=== PATIENT | female | born 1990 | race Caucasian/White ===

== ENCOUNTER 2017-03-13 16:12 | Emergency (ER) | payer MEDICAID, OTHER, SELFPAY ==
[2017-03-13 16:12] VITALS: BMI 35.2
[2017-03-13 16:18] VITALS: RESP 16; O2SAT 99
[2017-03-13] MEDS ORDERED: Sodium Chloride 0.9% 1,000 ML IV STA ×2 (16:25→18:07)
--- NOTE | 2017-03-13 16:29 | ED PDOC ---
HPI: General Adult Time Seen by Provider: 03/13/17 16:20 Chief Complaint (Nursing): Abdominal Pain Chief Complaint (Provider): fever, body aches, vomiting, diarrhea History Per: Patient Additional Complaint(s): 26 year old female with no past medical history presents to emergency department with 2 day history of fever, body aches, vomiting, diarrhea and abdominal pain. Patient took Tylenol earlier today but this did not help. She has mild generalized abdominal pain as well. Patient denies any recent travel or known sick contacts. No associated cough or chest pain. Patient has mild headache as well. Past Medical History Reviewed: Historical Data, Nursing Documentation, Vital Signs Vital Signs: Last Vital Signs Temp 99 F 03/13/17 19:30 Pulse 90 03/13/17 19:30 Resp 16 03/13/17 19:30 BP 103/58 L 03/13/17 19:30 Pulse Ox 99 03/13/17 19:40 - Medical History PMH: No Chronic Diseases - Surgical History Surgical History: No Surg Hx - Family History Family History: States: No Known Family Hx - Living Arrangements Living Arrangements: With Family - Social History Current smoker - smoking cessation education provided: No Alcohol: None Drugs: Denies - Home Medications Home Medications: Ambulatory Orders Medication Instructions Recorded Ciprofloxacin [Cipro] 500 mg PO BID #19 tab 02/10/17 Ibuprofen [Motrin] 600 mg PO Q6 #25 tab 02/10/17 Nitrofurantoin Macrocrystals 100 mg PO BID #20 tab 03/13/17 [Macrobid] - Allergies Allergies/Adverse Reactions: Allergies Allergy/AdvReac Type Severity Reaction Status Date / Time No Known Allergies Allergy Verified 02/10/17 20:30 Review of Systems ROS Statement: Except As Marked, All Systems Reviewed And Found Negative Constitutional: Positive for: Fever, Chills, Other (body aches) Cardiovascular: Negative for: Chest Pain Respiratory: Negative for: Cough Gastrointestinal: Positive for: Nausea, Vomiting, Abdominal Pain, Diarrhea Genitourinary Female: Negative for: Dysuria, Frequency, Incontinence, Hematuria , Vaginal Discharge, Vaginal Bleeding Neurological: Positive for: Headache (mild). Negative for: Confusion, Seizures , Altered Mental Status, Dizziness Physical Exam - Reviewed Nursing Documentation Reviewed: Yes Vital Signs Reviewed: Yes - Physical Exam Appears: Positive for: Well, Non-toxic, No Acute Distress Skin: Negative for: Rash Eye Exam: Positive for: Normal appearance ENT: Positive for: Pharyngeal Erythema. Negative for: Nasal Congestion, Tonsillar Exudate, Tonsillar Swelling Neck: Positive for: Normal. Negative for: Pain On Movement Of Neck (no nuchal rigidity) Cardiovascular/Chest: Positive for: Regular Rate, Rhythm Respiratory: Positive for: Normal Breath Sounds. Negative for: Respiratory Distress Gastrointestinal/Abdominal: Positive for: Soft. Negative for: Tenderness, Distended, Guarding, Rebound Back: Negative for: L CVA Tenderness, R CVA Tenderness Extremity: Negative for: Pedal Edema Neurologic/Psych: Positive for: Alert, Oriented, Gait (steady) - Laboratory Results Result Diagrams: 03/13/17 16:49 03/13/17 16:49 Urine POC: Negative - ECG O2 Sat by Pulse Oximetry: 99 Pulse Ox Interpretation: Normal - Other Rad CXR X-Ray: Interpreted by Me, Viewed By Me X-Ray Interpretation: ? RUL infiltrate Medical Decision Making Medical Decision Makin26 year old with fever and body aches Previous records reviewed. Patient was seen at [facility] ED on February 10 for abdominal pain. Ultrasound completed at that time was negative for acute pathology. Patient was diagnosed at that time with UTI and she completed course of Cipro. No urine culture results noted. Plan: Blood cultures Urine cultures CBC CMP VBG with lactate UA Rapid strep and throat culture Flu swab CXR WBC 17.9 Lactate normal at 1.3 UTI noted ? RUL infiltrate on CXR however patient denies cough or congestion, lungs are CTA bilaterally. 1 gram IV rocephin ordered 6:08 pm: Repeat VS improved, additional fluid bolus given. 7:06 pm: patient feels much better. Patient aware of all diagnostic testing results, all questions answered. Prescription given for macrobid. She was given fever control instructions, advised to drink plenty of fluids and was instructed to call clinic tomorrow to arrange for follow-up visit. Case was d/w ED attending Dr. Arevalo who agrees with plan. Disposition - Clinical Impression Clinical Impression: UTI (urinary tract infection) - Patient ED Disposition Is Patient to be Admitted: No Counseled Patient/Family Regarding: Studies Performed, Diagnosis, Need For Followup, Rx Given - Disposition Referrals: [facility] [Outside] Disposition: Routine/Home Disposition Time: 19:07 Condition: IMPROVED Additional Instructions: Take Tylenol every 4 hours and Motrin every 6 hours to control fever. Plenty of fluids and get plenty of rest. Take prescription meds as directed. Call clinic tomorrow and arrange for follow-up visit in 2-3 days. Prescriptions: Nitrofurantoin Macrocrystals [Macrobid] 100 mg PO BID #20 tab Instructions: Urinary Tract Infection in Women (ED) Forms: [employer] (Samoan) Print Language: URDU Results - Lab Results Lab Results: 03/13/17 03/13/17 03/13/17 16:49 16:49 16:49 WBC RBC Hgb Hct MCV MCH MCHC RDW Plt Count MPV Neut % (Auto) Lymph % (Auto) Mccormick % (Auto) Eos % (Auto) Baso % (Auto) Neut # Lymph # Mccormick # Eos # Baso # pO2 VBG pH VBG pCO2 VBG HCO3 VBG Total CO2 VBG O2 Sat (Calc) VBG Base Excess VBG Potassium Sodium Chloride Glucose Lactate FiO2 Potassium Carbon Dioxide Anion Gap BUN Creatinine Est GFR ( Amer) Est GFR (Non-Af Amer) Random Glucose Calcium Total Bilirubin AST ALT Alkaline Phosphatase Total Protein Albumin Globulin Albumin/Globulin Ratio Venous Blood Potassium Urine Color Yellow Urine Clarity Cloudy Urine pH 6.0 Ur Specific Dewey 1.014 Urine Protein 30 Urine Glucose (UA) Neg Urine Ketones Negative Urine Blood Negative Urine Nitrate Negative Urine Bilirubin Negative Urine Urobilinogen 0.2-1.0 Ur Leukocyte Esterase Mod Urine RBC (Auto) 6 H Urine Microscopic WBC 34 H Ur Squamous Epith Cells 4 Urine Bacteria Occ H Influenza Typ A,B (EIA) Negative for flu a/b Grp A Beta Strep Ag Negative 03/13/17 03/13/17 03/13/17 16:49 16:49 16:48 WBC 17.9 H RBC 4.80 Hgb 13.6 Hct 41.4 MCV 86.1 MCH 28.3 MCHC 32.9 L RDW 13.7 Plt Count 193 MPV 8.8 Neut % (Auto) 78.1 H Lymph % (Auto) 10.2 L Mccormick % (Auto) 11.4 H Eos % (Auto) 0.1 Baso % (Auto) 0.2 Neut # 14.0 H Lymph # 1.8 Mccormick # 2.0 H Eos # 0.0 Baso # 0.0 pO2 21 L VBG pH 7.43 VBG pCO2 46 VBG HCO3 27.4 VBG Total CO2 31.9 H VBG O2 Sat (Calc) 38.9 L VBG Base Excess 5.3 H VBG Potassium 3.5 L Sodium 137 136.0 Chloride 101 102.0 Glucose 115 H Lactate 1.3 FiO2 21.0 Potassium 3.4 L Carbon Dioxide 27 Anion Gap 12 BUN 7 Creatinine 0.7 Est GFR ( Amer) > 60 Est GFR (Non-Af Amer) > 60 Random Glucose 118 H Calcium 9.2 Total Bilirubin 0.5 AST 29 ALT 44 Alkaline Phosphatase 71 Total Protein 7.8 Albumin 4.4 Globulin 3.4 Albumin/Globulin Ratio 1.3 Venous Blood Potassium 3.5 L Urine Color Urine Clarity Urine pH Ur Specific Dewey Urine Protein Urine Glucose (UA) Urine Ketones Urine Blood Urine Nitrate Urine Bilirubin Urine Urobilinogen Ur Leukocyte Esterase Urine RBC (Auto) Urine Microscopic WBC Ur Squamous Epith Cells Urine Bacteria Influenza Typ A,B (EIA) Grp A Beta Strep Ag
[2017-03-13 16:53] LABS: VENOUS BLOOD GAS BASE EXCESS 5.3 mmol/L (0.0-2.0); VENOUS BLOOD GAS PCO2 46 mmHg (40-60); VENOUS BLOOD PH 7.43 (7.32-7.43)
[2017-03-13 16:56] LABS: BASO % 0.2 % (0.0-2.0); EOS % 0.1 % (0.0-4.0); HEMATOCRIT 41.4 % (34.0-47.0); LYMPH # 1.8 K/uL (1.0-4.3); LYMPH % 10.2 % (20.0-40.0); MEAN CELL VOLUME 86.1 fl (81.0-99.0); MEAN CORPUSCULAR HEMOGLOBIN 28.3 pg (27.0-31.0); MEAN CORPUSCULAR HGB CONC 32.9 g/dL (33.0-37.0); MEAN PLATELET VOLUME 8.8 fl (7.2-11.7); MONO % 11.4 % (0.0-10.0); NEUT % 78.1 % (50.0-75.0); RED CELL DISTRIBUTION WIDTH 13.7 % (11.5-14.5); WHITE BLOOD COUNT 17.9 K/uL (4.8-10.8)
[2017-03-13 17:02] LABS: RBC URINE 6 /hpf (0-3); URINE BACTERIA OCC (<OCC); URINE BILIRUBIN NEGATIVE (NEGATIVE); URINE BLOOD NEGATIVE (NEGATIVE); URINE COLOR YELLOW (YELLOW); URINE GLUCOSE (UA) NEG (Normal); URINE KETONE NEGATIVE (NEGATIVE); URINE LEUKOCYTE ESTERASE MOD Leu/uL (Negative); URINE PROTEIN 30 mg/dL (NEGATIVE); URINE UROBILINOGEN 0.2-1.0 mg/dL (0.2-1.0); WBC URINE 34 /hpf (0-5)
[2017-03-13 17:04] LABS: ALB/GLOB RATIO 1.3 (1.0-2.1); ALKALINE PHOSPHATASE 71 U/L (38-126); ALT/SGPT 44 U/L (9-52); AST/SGOT 29 U/L (14-36); BILIRUBIN,TOTAL 0.5 mg/dl (0.2-1.3); BLOOD UREA NITROGEN 7 mg/dl (7-17); CALCIUM 9.2 mg/dL (8.4-10.2); CARBON DIOXIDE 27 mmol/L (22-30); CHLORIDE 101 mmol/L (98-107); GFR AFRICAN-AMERICAN > 60; GLUCOSE,RANDOM 118 mg/dL (65-105); POTASSIUM 3.4 MMOL/L (3.6-5.0); SODIUM 137 mmol/l (132-148); TOTAL PROTEIN 7.8 G/DL (6.3-8.2)
[2017-03-13] MEDS ORDERED: cefTRIAXone (Rocephin) 1 gm Inj ONE (18:14)
[2017-03-13 19:31] VITALS: BP 103/58; PULSE 90; TEMP 99
--- NOTE | 2017-03-14 11:26 | RAD ---
HISTORY: cough COMPARISON: No prior. TECHNIQUE: Chest PA and lateral FINDINGS: LUNGS: No active pulmonary disease. PLEURA: No significant pleural effusion identified. No pneumothorax apparent. CARDIOVASCULAR: Normal. OSSEOUS STRUCTURES: No significant abnormalities. VISUALIZED UPPER ABDOMEN: Normal. OTHER FINDINGS: None. IMPRESSION: No active disease. Concordant results with the preliminary interpretation rendered by the emergency department physician procedure.
== END 2017-03-13 19:40 | disposition home or self-care (01) ==
LOC: H.ER 16:12
DX: N39.0 Urinary tract infection, site not specified (principal); R10.9 Unspecified abdominal pain